=== PATIENT | female | born 1955 ===

== ENCOUNTER 2018-04-11 09:38 | Emergency (ER) | payer OTHER ==
[~2018-04-11] VITALS: Ht 162.6 cm; Wt 58.1 kg
== END 2018-04-11 15:55 | disposition home or self-care (01) ==
LOC: ER 09:38
DX: S52.514A Nondisplaced fracture of right radial styloid process, initial encounter for closed fracture (principal); W18.39XA Other fall on same level, initial encounter; Y93.89 Activity, other specified; Y92.89 Other specified places as the place of occurrence of the external cause; Y99.8 Other external cause status; R53.1 Weakness

== ENCOUNTER 2018-04-11 16:50 | Emergency (ER) | payer OTHER ==
[~2018-04-11] VITALS: Ht 160 cm; Wt 58.1 kg
== END 2018-04-12 15:35 | disposition home or self-care (01) ==
LOC: ER 16:50
DX: S52.591D Other fractures of lower end of right radius, subsequent encounter for closed fracture with routine healing (principal); R20.0 Anesthesia of skin; W18.39XD Other fall on same level, subsequent encounter